=== PATIENT | female | born 2000 | race American Indian/Alaskan Native ===

== ENCOUNTER 2018-01-11 15:08 | Emergency (ER) | payer MEDICAID, OTHER ==
[~2018-01-11] VITALS: Ht 160 cm; Wt 77.3 kg
[~2018-01-11 15:08] MED LIST: ALBU6.7H INH; INHA1EAC68 MC; LEVA15HF4 IH; RANI150T44 PO; SINGULAR; SUMA25TA35 PO; ZYRTEC
[2018-01-11 15:14] VITALS: BP 127/62
[2018-01-11] MEDS ORDERED: SULF1TAB49 PO (15:24)
== END 2018-01-11 15:51 | disposition home or self-care (01) ==
LOC: ER 15:08
DX: L73.9 Follicular disorder, unspecified (principal); Z79.899 Other long term (current) drug therapy
CPT/HCPCS: 99283

== ENCOUNTER 2018-09-08 20:55 | Emergency (ER) | payer MEDICAID ==
[~2018-09-08] VITALS: Ht 157.5 cm; Wt 83.0 kg
[2018-09-08] MEDS ORDERED: ALBU18HF2 INH (22:41)
[2018-09-08] MEDS ORDERED: GUAI237S46 PO (22:41)
[2018-09-08] MEDS ORDERED: PRED20TA PO (22:41)
[2018-09-08 22:51] VITALS: BP 114/72
== END 2018-09-08 22:52 | disposition home or self-care (01) ==
LOC: ER 20:57
DX: J20.9 Acute bronchitis, unspecified (principal); Z79.899 Other long term (current) drug therapy
CPT/HCPCS: 99283

== ENCOUNTER 2022-01-27 15:35 | Emergency (ER) | payer MEDICAID ==
[~2022-01-27] VITALS: Ht 157.5 cm; Wt 93.2 kg
[~2022-01-27 15:35] MED LIST changes: +ALBU18HF2 INH; -ALBU6.7H INH; +ALBU6.7H14 INH; +RANI-648 PO; -RANI150T44 PO
[2022-01-27 15:44] VITALS: BP 124/82
[2022-01-27 16:19] LABS: CLARITY,URINE SLIGHTLY CLOUDY (Clear); COLOR,URINE YELLOW (Yellow); GLUCOSE, URINE NEGATIVE (Neg); KETONES,URINE NEGATIVE (Neg); LEUKOCYTE ESTERASE ,URINE NEGATIVE (Neg); NITRITES, URINE NEGATIVE (Neg); OCCULT BLOOD,URINE NEGATIVE (Neg); PH,URINE 6.5 (4.8-8.0); PROTEIN,URINE NEGATIVE (Neg); UROBILINOGEN,URINE 0.2 E.U/dL (0.2-1.0)
[2022-01-27 16:20] LABS: URINE HCG NEGATIVE (NEG)
[2022-01-27 16:23] LABS: UA COLLECTION TYPE CLN CATCH MIDSTREAM
[2022-01-27 16:24] LABS: BASOPHILS # (AUTO) 0.1 X10'3 (0-0.2); BASOPHILS % (AUTO) 0.8 % (0-1); EOSINOPHILS # (AUTO) 0.1 X10'3 (0-0.9); EOSINOPHILS % (AUTO) 0.8 % (0-6); HEMATOCRIT 41.9 % (35.0-45.0); HEMOGLOBIN 14.2 g/dl (12.0-16.0); LYMPHOCYTES # (AUTO) 2.6 X10'3 (1.1-4.8); LYMPHOCYTES % (AUTO) 32.9 % (21-51); MEAN CORPUSCULAR HEMOGLOBIN 29.1 PG (27.0-31.0); MEAN CORPUSCULAR VOLUME 85.6 FL (78-98); MEAN PLATELET VOLUME 7.5 FL (7.4-10.4); MONOCYTES # (AUTO) 0.5 X10'3 (0-0.9); MONOCYTES % (AUTO) 5.7 % (2-12); NEUTROPHILS # (AUTO) 4.8 X10'3 (1.8-7.7); NEUTROPHILS % (AUTO) 59.8 % (42-75); PLATELET COUNT 275 X10'3 (140-440); RED CELL DISTRIBUTION WIDTH 13.7 % (11.5-14.5)
[2022-01-27 16:29] LABS: MUCUS STRANDS FEW /LPF (Neg); SQUAMOUS EPITHELIAL CELL,UR MANY /LPF (FEW)
[2022-01-27 16:30] LABS: BACTERIA,URINE 2+ /HPF (Neg); RBC,URINE 0-2 /HPF (0-2); WBC,URINE 0-4 /HPF (0-4)
[2022-01-27 16:38] LABS: ALANINE AMINOTRANSFERASE 29 U/L (12-78); ALBUMIN 3.9 G/DL (3.4-5.0); ALBUMIN/GLOBULIN RATIO 1.2 (1.1-1.5); ALKALINE PHOSPHATASE 73 IU/L (46-116); ANION GAP 6 (8-16); ASPARTATE AMINO TRANSFERASE 13 U/L (10-37); BILIRUBIN,TOTAL 0.5 MG/DL (0.1-1.0); BLOOD UREA NITROGEN 8 MG/DL (7-18); BUN/CREATININE RATIO 11.1 (6.6-38.0); CALCIUM 8.7 MG/DL (8.5-10.1); CHLORIDE 105 MMOL/L (99-107); CREATININE 0.72 MG/DL (0.40-0.90); GLUCOSE 106 MG/DL (70-104); LIPASE 141 U/L (73-393); SODIUM 140 MMOL/L (135-145); TOTAL CARBON DIOXIDE 29.4 MMOL/L (24-32); TOTAL PROTEIN 7.1 G/DL (6.4-8.2); eGFR > 90 ML/MIN
--- NOTE | 2022-01-27 19:40 | NUR ---
ULTRASOUND PAGED AT [id number]
== END 2022-01-27 21:09 | disposition home or self-care (01) ==
LOC: ER 15:36
DX: K80.50 Calculus of bile duct without cholangitis or cholecystitis without obstruction (principal); Z79.899 Other long term (current) drug therapy
CPT/HCPCS: 36415; 76700; 80053; 81001; 81025; 83690; 85025; 99284; C1758

== ENCOUNTER 2022-07-18 20:55 | Emergency (ER) | payer MEDICAID ==
[~2022-07-18] VITALS: Ht 158.8 cm; Wt 93.0 kg
[2022-07-18 21:02] VITALS: BP 130/78
[2022-07-18] MEDS ORDERED: ketorolac trometh. 30mg/ml inj. IM ONE ×2 (21:45→22:50)
[2022-07-18] MEDS ORDERED: HYDROcodone/acetaminophen 10/325mg tab PO ONE (21:45)
[2022-07-18] MEDS ORDERED: ondansetron 4mg rapidly disintigrating tab PO ONE (21:45)
[2022-07-18] MEDS ORDERED: fentaNYL/PF 50MCG/1 ML 2ML syringe IM ONE (23:15)
[2022-07-18] MEDS ORDERED: TETanus/Pertussis (Acell)/Diphther VAC/PF (Tdap-Adult) 0.5ml syringe IMVAC ONE (23:30)
[2022-07-19] MEDS ORDERED: OXYC-134 PO (00:22)
[2022-07-19] MEDS ORDERED: oxyCODONE/APAP 5-325mg tablet PO ONE (00:30)
== END 2022-07-19 01:12 | disposition home or self-care (01) ==
LOC: ER 20:57
DX: S42.201A Unspecified fracture of upper end of right humerus, initial encounter for closed fracture (principal); V00.141A Fall from scooter (nonmotorized), initial encounter; Y93.89 Activity, other specified; Y92.89 Other specified places as the place of occurrence of the external cause; Y99.8 Other external cause status
CPT/HCPCS: 73030; 90471; 90715; 96372; 99284; J1885; J3010; J7030; A4565